=== PATIENT | female | born 1965 | race Caucasian/White ===

== ENCOUNTER 2018-03-30 13:58 | Emergency (ER) | payer SELFPAY ==
[~2018-03-30] VITALS: Ht 152.4 cm; Wt 43.6 kg
[2018-03-30 14:59] LABS: HEMATOCRIT 38.9 % (36.0-46.0); HEMOGLOBIN 12.9 G/DL (11.9-15.5); MCH 31.8 PG (29.0-34.0); MCHC 33.2 G/DL (30.0-36.0); MCV 95.8 FL (83-99); PLATELET COUNT 278 K/uL (156-360); RBC DIS.WIDTH-CV 12.8 % (11.8-14.6); RBC DIS.WIDTH-SD 45.4 % (39-53); RED BLOOD COUNT 4.06 M/uL (3.80-5.20); WHITE BLOOD COUNT 6.8 K/uL (4.1-10.2)
[2018-03-30 15:08] LABS: CHLORIDE 105 mEq/L (99-109); SODIUM 141 mEq/L (136-147)
[2018-03-30 15:09] LABS: GLUCOSE 97 mg/dL (70-99)
[2018-03-30 15:13] LABS: CREATININE 0.7 mg/dL (0.6-1.3)
[2018-03-30 15:14] LABS: GFR ESTIMATE (CALCULATED) > 59 mL/min/; UREA NITROGEN (BUN) 15 mg/dL (9-23)
[2018-03-30 15:19] LABS: TROP-I INTERPRETATION NEGATIVE; TROPONIN-I < 0.01 ng/mL (0.0-0.30)
[2018-03-30] MEDS ORDERED: PERCOCET 5/31 TABLET PO (16:09)
[2018-03-30 17:10] VITALS: BP 119/72
== END 2018-03-30 17:10 | disposition home or self-care (01) ==
LOC: EME 13:58
DX: R07.89 Other chest pain (principal); F41.9 Anxiety disorder, unspecified; F17.200 Nicotine dependence, unspecified, uncomplicated; Z88.8 Allergy status to other drugs, medicaments and biological substances
CPT/HCPCS: 71046; 80048; 84484; 85027; 93005; 99281; 99285

== ENCOUNTER 2018-05-28 16:12 | Emergency (ER) | payer SELFPAY ==
[~2018-05-28] VITALS: Ht 152.4 cm; Wt 46.8 kg
[~2018-05-28 16:12] MED LIST: PERCOCET 5/31 TABLET PO
[2018-05-28] MEDS ORDERED: FLEXERIL5 MG PO (16:47)
[2018-05-28] MEDS ORDERED: LEXAPRO20 MG PO (16:48)
[2018-05-28] MEDS ORDERED: BUSPAR10 MG PO (16:48)
[2018-05-28] MEDS ORDERED: GABAPENTIN300 MG PO (16:48)
[2018-05-28] MEDS ORDERED: TEGRETOL200 MG PO (16:49)
[2018-05-28] MEDS ORDERED: VENTOLIN HFA18 GM IH (19:25)
[2018-05-28] MEDS ORDERED: ZITHROMAX Z-PA250 MG PO (19:25)
[2018-05-28 19:49] VITALS: BP 115/79
[2018-05-29] MEDS ORDERED: INDOCIN50 MG PO (19:16)
== END 2018-05-28 20:08 | disposition home or self-care (01) ==
LOC: EME 16:12
DX: J18.9 Pneumonia, unspecified organism (principal); M26.603 Bilateral temporomandibular joint disorder, unspecified; F41.9 Anxiety disorder, unspecified; I45.10 Unspecified right bundle-branch block; F17.200 Nicotine dependence, unspecified, uncomplicated
CPT/HCPCS: 71046; 93005; 94640; 99281; 99284

== ENCOUNTER 2018-05-29 18:16 | Emergency (ER) | payer SELFPAY ==
[~2018-05-29] VITALS: Ht 152.4 cm; Wt 47.0 kg
[~2018-05-29 18:16] MED LIST changes: +BUSPAR10 MG PO; +FLEXERIL5 MG PO; +GABAPENTIN300 MG PO; +LEXAPRO20 MG PO; +TEGRETOL200 MG PO; +VENTOLIN HFA18 GM IH; +ZITHROMAX Z-PA250 MG PO
[2018-05-29] MEDS ORDERED: INDOCIN50 MG PO (19:16)
[2018-05-29 19:20] VITALS: BP 121/80
== END 2018-05-29 19:20 | disposition home or self-care (01) ==
LOC: EME 18:16
DX: M26.603 Bilateral temporomandibular joint disorder, unspecified (principal); F17.200 Nicotine dependence, unspecified, uncomplicated
CPT/HCPCS: 99281; 99283

== ENCOUNTER 2018-05-30 10:54 | Emergency (ER) | payer SELFPAY ==
[~2018-05-30] VITALS: Ht 152.4 cm; Wt 46.8 kg
[~2018-05-30 10:54] MED LIST changes: +INDOCIN50 MG PO
[2018-05-30 13:24] LABS: BASOPHIL (%) 0.4 % (0-1); EOSINOPHIL (%) 3.4 % (0-5); EOSINOPHIL COUNT 0.2 K/uL (0-0.3); HEMOGLOBIN 12.6 G/DL (11.9-15.5); IMMATURE GRANULOCYTE (%) 0.4 % (0.0-0.7); LYMPHOCYTE (%) 28.4 % (15-42); LYMPHOCYTE COUNT 1.3 K/uL (1.0-2.8); MCH 32.5 PG (29.0-34.0); MCHC 34.1 G/DL (30.0-36.0); MCV 95.4 FL (83-99); MONOCYTE (%) 8.1 % (3-12); MONOCYTE COUNT 0.4 K/uL (0-0.8); NEUTROPHIL (%) 59.3 % (45-76); NEUTROPHIL COUNT 2.8 K/uL (1.8-6.4); PLATELET COUNT 221 K/uL (156-360); RBC DIS.WIDTH-CV 13.5 % (11.8-14.6); RBC DIS.WIDTH-SD 47.3 % (39-53); RED BLOOD COUNT 3.88 M/uL (3.80-5.20); WHITE BLOOD COUNT 4.7 K/uL (4.1-10.2)
[2018-05-30 14:42] LABS: CHLORIDE 104 MEQ/L (99-109); CREATININE 0.7 MG/DL (0.6-1.3); GFR ESTIMATE (CALCULATED) > 59 mL/min/; GLUCOSE 80 mg/dL (70-99); POTASSIUM 4.1 MEQ/L (3.7-5.4); SODIUM 140 MEQ/L (136-147); UREA NITROGEN (BUN) 17 mg/dL (9-23)
[2018-05-30 16:57] VITALS: BP 104/63
[2018-05-31] MEDS ORDERED: ROBAXIN500 MG PO (14:51)
== END 2018-05-30 17:28 | disposition home or self-care (01) ==
LOC: EME 10:54
PROVIDERS: Emergency Medicine
DX: M26.629 Arthralgia of temporomandibular joint, unspecified side (principal); E04.1 Nontoxic single thyroid nodule; F17.200 Nicotine dependence, unspecified, uncomplicated; Z86.79 Personal history of other diseases of the circulatory system; Z88.8 Allergy status to other drugs, medicaments and biological substances
CPT/HCPCS: 70491; 80048; 85025; 99281; 99284; J2060; J7120

== ENCOUNTER 2018-05-31 10:18 | Emergency (ER) | payer SELFPAY ==
[~2018-05-31] VITALS: Ht 152.4 cm; Wt 46.3 kg
[2018-05-31 12:42] VITALS: BP 125/78
[2018-05-31] MEDS ORDERED: ROBAXIN500 MG PO (14:51)
== END 2018-05-31 12:43 | disposition home or self-care (01) ==
LOC: EME 10:18
DX: F41.9 Anxiety disorder, unspecified (principal); Z73.3 Stress, not elsewhere classified; F17.200 Nicotine dependence, unspecified, uncomplicated
CPT/HCPCS: 90839; 99281; 99283

== ENCOUNTER 2018-05-31 14:28 | Emergency (ER) | payer SELFPAY ==
[~2018-05-31] VITALS: Ht 157.5 cm; Wt 46.3 kg
[2018-05-31] MEDS ORDERED: ROBAXIN500 MG PO (14:51)
[2018-05-31 15:40] VITALS: BP 111/70
== END 2018-05-31 15:40 | disposition home or self-care (01) ==
LOC: EME 14:28
DX: F41.0 Panic disorder [episodic paroxysmal anxiety] (principal); R06.02 Shortness of breath; F17.200 Nicotine dependence, unspecified, uncomplicated
CPT/HCPCS: 99281; 99284

== ENCOUNTER 2018-06-01 08:58 | Emergency (ER) | payer SELFPAY ==
[~2018-06-01] VITALS: Ht 165.1 cm; Wt 50.0 kg
[~2018-06-01 08:58] MED LIST changes: +ROBAXIN500 MG PO
[2018-06-01 11:20] VITALS: BP 126/72
[2018-06-02] MEDS ORDERED: LIBRIUM25 MG PO (19:38)
== END 2018-06-01 11:28 | disposition home or self-care (01) ==
LOC: EME 08:58
DX: F41.1 Generalized anxiety disorder (principal); R91.8 Other nonspecific abnormal finding of lung field; F17.200 Nicotine dependence, unspecified, uncomplicated; Z86.79 Personal history of other diseases of the circulatory system; Z88.8 Allergy status to other drugs, medicaments and biological substances
CPT/HCPCS: 71046; 80053; 84484; 85027; 90839; 99281; 99284

== ENCOUNTER 2018-06-01 11:27 | Emergency (ER) | payer SELFPAY ==
[~2018-06-01] VITALS: Ht 152.4 cm; Wt 46.2 kg
[2018-06-01 11:42] VITALS: BP 113/83
[2018-06-02] MEDS ORDERED: LIBRIUM25 MG PO (19:38)
== END 2018-06-01 13:19 | disposition left against medical advice (07) ==
LOC: EME 11:27
DX: R06.00 Dyspnea, unspecified (principal); Z53.21 Procedure and treatment not carried out due to patient leaving prior to being seen by health care provider

== ENCOUNTER 2018-06-02 19:11 | Emergency (ER) | payer SELFPAY ==
[~2018-06-02] VITALS: Ht 152.4 cm; Wt 47.2 kg
[2018-06-02] MEDS ORDERED: LIBRIUM25 MG PO (19:38)
[2018-06-02 19:59] VITALS: BP 128/76
== END 2018-06-02 19:59 | disposition home or self-care (01) ==
LOC: EME 19:11 → EXP 19:11
DX: F41.9 Anxiety disorder, unspecified (principal); F32.9 Major depressive disorder, single episode, unspecified; F17.200 Nicotine dependence, unspecified, uncomplicated; Z88.8 Allergy status to other drugs, medicaments and biological substances
CPT/HCPCS: 99281; 99284

== ENCOUNTER 2018-06-17 22:45 | Emergency (ER) | payer SELFPAY ==
[~2018-06-17] VITALS: Ht 152.4 cm; Wt 50.0 kg
[~2018-06-17 22:45] MED LIST changes: +LIBRIUM25 MG PO
[2018-06-18 00:17] VITALS: BP 117/75
== END 2018-06-18 00:18 | disposition home or self-care (01) ==
LOC: EME 22:45
DX: F41.9 Anxiety disorder, unspecified (principal); F41.0 Panic disorder [episodic paroxysmal anxiety]; Z76.0 Encounter for issue of repeat prescription; F17.200 Nicotine dependence, unspecified, uncomplicated
CPT/HCPCS: 99281; 99284; Q0177

== ENCOUNTER 2018-06-18 09:26 | Emergency (ER) | payer SELFPAY ==
[~2018-06-18] VITALS: Ht 152.4 cm; Wt 45.0 kg
[2018-06-18 11:41] LABS: APPEARANCE SL.HAZY ((CLEAR)); BILIRUBIN NEGATIVE; BLOOD NEGATIVE; COLOR YELLOW ((YELLOW)); GLUCOSE (STRIP) NEGATIVE; KETONES NEGATIVE; LEUKOCYTES MODERATE; NITRITE NEGATIVE; PROTEIN (STRIP) NEGATIVE; SPECIFIC GRAVITY 1.008 (1.000-1.030); UROBILINOGEN 0.2 MG/DL (0.2-1.0)
[2018-06-18 11:47] LABS: BACTERIA 1+ /HPF; EPITHELIAL CELLS 3+ /HPF; MUCUS NONE SEEN /LPF; RED BLOOD CELLS 0-5 /HPF (0-5); WHITE BLOOD CELLS 0-5 /HPF (0-5)
[2018-06-18 11:51] LABS: BASOPHIL (%) 0.5 % (0-1); EOSINOPHIL (%) 0.8 % (0-5); EOSINOPHIL COUNT 0.1 K/uL (0-0.3); HEMATOCRIT 43.6 % (36.0-46.0); HEMOGLOBIN 14.8 G/DL (11.9-15.5); IMMATURE GRANULOCYTE (%) 0.3 % (0.0-0.7); LYMPHOCYTE (%) 16.6 % (15-42); MCH 32.1 PG (29.0-34.0); MCHC 33.9 G/DL (30.0-36.0); MCV 94.6 FL (83-99); MONOCYTE (%) 4.5 % (3-12); MONOCYTE COUNT 0.3 K/uL (0-0.8); NEUTROPHIL (%) 77.3 % (45-76); NEUTROPHIL COUNT 4.7 K/uL (1.8-6.4); PLATELET COUNT 250 K/uL (156-360); RBC DIS.WIDTH-CV 13.4 % (11.8-14.6); RBC DIS.WIDTH-SD 46.8 % (39-53); RED BLOOD COUNT 4.61 M/uL (3.80-5.20)
[2018-06-18 11:53] LABS: CHLORIDE 104 mEq/L (99-109); POTASSIUM 4.7 mEq/L (3.7-5.4); SODIUM 142 mEq/L (136-147)
[2018-06-18 11:53] LABS: AMPHETAMINE NEGATIVE (500 ng/mL); BARBITURATES NEGATIVE (200 ng/mL); BENZODIAZEPINES PRESUMPTIVE POSITIVE (150 ng/mL); BUPRENORPHINE NEGATIVE (10 ng/mL); COCAINE NEGATIVE (150 ng/mL); METHADONE NEGATIVE (200 ng/mL); METHAMPHETAMINE NEGATIVE (500 ng/mL); OPIATES (MORPHINE) NEGATIVE (100 ng/mL); OXYCODONE NEGATIVE (100 ng/mL); PHENCYCLIDINE NEGATIVE (25 ng/mL); PROPOXYPHENE NEGATIVE (300 ng/mL); THC CANNABINOIDS NEGATIVE (50 ng/mL); TRICYCLIC ANTIDEPRESSANTS NEGATIVE (300 ng/mL)
[2018-06-18 11:55] LABS: GLUCOSE 125 mg/dL (70-99)
[2018-06-18 11:58] LABS: CREATININE 0.8 mg/dL (0.6-1.3); GFR ESTIMATE (CALCULATED) > 59 mL/min/; SERUM ETHYL ALCOHOL < 10 mg/dL
[2018-06-18 11:59] LABS: UREA NITROGEN (BUN) 12 mg/dL (9-23)
[2018-06-18 12:36] LABS: BENZODIAZEPINES, URINE SCREEN POSITIVE (200 ng/mL)
[2018-06-18 12:45] VITALS: BP 125/83
== END 2018-06-18 12:46 | disposition home or self-care (01) ==
LOC: EME 09:26
PROVIDERS: Emergency Medicine
DX: F41.1 Generalized anxiety disorder (principal); F41.0 Panic disorder [episodic paroxysmal anxiety]; F32.9 Major depressive disorder, single episode, unspecified; F17.200 Nicotine dependence, unspecified, uncomplicated
CPT/HCPCS: 80048; 81003; 84999; 85025; 90839; 99281; 99284; G0480

== ENCOUNTER 2018-06-25 09:27 | Emergency (ER) | payer SELFPAY ==
[~2018-06-25] VITALS: Ht 152.4 cm; Wt 46.1 kg
[2018-06-25 10:40] LABS: HEMATOCRIT 39.8 % (36.0-46.0); HEMOGLOBIN 13.9 G/DL (11.9-15.5); MCHC 34.9 G/DL (30.0-36.0); MCV 91.7 FL (83-99); PLATELET COUNT 248 K/uL (156-360); RBC DIS.WIDTH-CV 12.9 % (11.8-14.6); RBC DIS.WIDTH-SD 43.6 % (39-53); RED BLOOD COUNT 4.34 M/uL (3.80-5.20); WHITE BLOOD COUNT 5.2 K/uL (4.1-10.2)
[2018-06-25 10:52] LABS: CHLORIDE 103 mEq/L (99-109); SODIUM 141 mEq/L (136-147)
[2018-06-25 10:53] LABS: GLUCOSE 130 mg/dL (70-99); POTASSIUM 3.7 mEq/L (3.7-5.4)
[2018-06-25 10:57] LABS: CREATININE 0.8 mg/dL (0.6-1.3); GFR ESTIMATE (CALCULATED) > 59 mL/min/
[2018-06-25 10:58] LABS: UREA NITROGEN (BUN) 8 mg/dL (9-23)
[2018-06-25 11:20] LABS: APPEARANCE SL.HAZY ((CLEAR)); BILIRUBIN NEGATIVE; BLOOD SMALL; COLOR YELLOW ((YELLOW)); GLUCOSE (STRIP) NEGATIVE; KETONES NEGATIVE; LEUKOCYTES MODERATE; NITRITE POSITIVE; PROTEIN (STRIP) NEGATIVE; SPECIFIC GRAVITY 1.013 (1.000-1.030); UROBILINOGEN 0.2 MG/DL (0.2-1.0)
[2018-06-25 11:28] LABS: BACTERIA 1+ /HPF; EPITHELIAL CELLS 1+ /HPF; MUCUS TRACE /LPF; UCUL ADDED? YES; WHITE BLOOD CELLS 30-40 /HPF (0-5)
[2018-06-25 11:30] VITALS: BP 147/83
[2018-06-25 11:57] LABS: AMPHETAMINE NEGATIVE (500 ng/mL); BARBITURATES NEGATIVE (200 ng/mL); BENZODIAZEPINES PRESUMPTIVE POSITIVE (150 ng/mL); BUPRENORPHINE NEGATIVE (10 ng/mL); COCAINE NEGATIVE (150 ng/mL); METHADONE NEGATIVE (200 ng/mL); METHAMPHETAMINE NEGATIVE (500 ng/mL); OPIATES (MORPHINE) NEGATIVE (100 ng/mL); OXYCODONE NEGATIVE (100 ng/mL); PHENCYCLIDINE NEGATIVE (25 ng/mL); PROPOXYPHENE NEGATIVE (300 ng/mL); THC CANNABINOIDS NEGATIVE (50 ng/mL); TRICYCLIC ANTIDEPRESSANTS NEGATIVE (300 ng/mL)
[2018-06-25 13:09] LABS: BENZODIAZEPINES, URINE SCREEN POSITIVE (200 ng/mL)
[2018-06-25] MEDS ORDERED: MACROBID100 MG PO (17:04)
[2018-06-25] MEDS ORDERED: LIDODERM 5% P1 PATCH TD (17:04)
[2018-06-26] MEDS ORDERED: SEROQUEL50 MG PO (12:37)
== END 2018-06-25 11:35 | disposition home or self-care (01) ==
LOC: EME 09:27
PROVIDERS: Emergency Medicine
DX: F41.9 Anxiety disorder, unspecified (principal); F13.10 Sedative, hypnotic or anxiolytic abuse, uncomplicated; F32.9 Major depressive disorder, single episode, unspecified; F17.200 Nicotine dependence, unspecified, uncomplicated; Z88.8 Allergy status to other drugs, medicaments and biological substances
CPT/HCPCS: 80048; 81003; 84999; 85027; 87077; 87086; 87186; 90839; 99281; 99283

== ENCOUNTER 2018-06-25 14:40 | Emergency (ER) | payer SELFPAY ==
[~2018-06-25] VITALS: Ht 152.4 cm; Wt 46.4 kg
[2018-06-25] MEDS ORDERED: LIDODERM 5% P1 PATCH TD (17:04)
[2018-06-25] MEDS ORDERED: MACROBID100 MG PO (17:04)
[2018-06-25 17:25] VITALS: BP 150/97
[2018-06-26] MEDS ORDERED: SEROQUEL50 MG PO (12:37)
== END 2018-06-25 17:32 | disposition home or self-care (01) ==
LOC: EME 14:40
DX: F41.0 Panic disorder [episodic paroxysmal anxiety] (principal); F41.1 Generalized anxiety disorder; N39.0 Urinary tract infection, site not specified; M54.2 Cervicalgia; R68.84 Jaw pain; R20.2 Paresthesia of skin; F17.200 Nicotine dependence, unspecified, uncomplicated
CPT/HCPCS: 99281; 99284

== ENCOUNTER 2018-06-26 09:49 | Emergency (ER) | payer SELFPAY ==
[~2018-06-26] VITALS: Ht 152.4 cm; Wt 47.2 kg
[~2018-06-26 09:49] MED LIST changes: +LIDODERM 5% P1 PATCH TD; +MACROBID100 MG PO
[2018-06-26] MEDS ORDERED: SEROQUEL50 MG PO (12:37)
[2018-06-26 12:54] VITALS: BP 145/89
[2018-06-27] MEDS ORDERED: ZOFRAN ODT8 MG PO (11:29)
[2018-06-27] MEDS ORDERED: AMOXICILLIN400 MG PO (11:29)
== END 2018-06-26 13:01 | disposition home or self-care (01) ==
LOC: EME 09:49
DX: F41.9 Anxiety disorder, unspecified (principal); Z76.0 Encounter for issue of repeat prescription; F32.9 Major depressive disorder, single episode, unspecified; F17.200 Nicotine dependence, unspecified, uncomplicated; Z88.8 Allergy status to other drugs, medicaments and biological substances
CPT/HCPCS: 90832; 99281; 99284

== ENCOUNTER 2018-06-27 08:14 | Emergency (ER) | payer SELFPAY ==
[~2018-06-27] VITALS: Ht 152.4 cm; Wt 44.4 kg
[~2018-06-27 08:14] MED LIST changes: +SEROQUEL50 MG PO
[2018-06-27 08:46] LABS: HEMATOCRIT 41.1 % (36.0-46.0); HEMOGLOBIN 14.2 G/DL (11.9-15.5); MCH 32.2 PG (29.0-34.0); MCHC 34.5 G/DL (30.0-36.0); MCV 93.2 FL (83-99); PLATELET COUNT 247 K/uL (156-360); RBC DIS.WIDTH-CV 13.2 % (11.8-14.6); RBC DIS.WIDTH-SD 45.5 % (39-53); RED BLOOD COUNT 4.41 M/uL (3.80-5.20); WHITE BLOOD COUNT 7.5 K/uL (4.1-10.2)
[2018-06-27 08:54] LABS: ALBUMIN 4.6 g/dL (3.2-4.8); CHLORIDE 102 mEq/L (99-109); SODIUM 142 mEq/L (136-147)
[2018-06-27 08:57] LABS: GLUCOSE 117 mg/dL (70-99); TOTAL PROTEIN 7.9 g/dL (6.4-8.3)
[2018-06-27 08:59] LABS: TOTAL BILIRUBIN 0.6 mg/dL (0.0-1.0)
[2018-06-27 09:00] LABS: ALKALINE PHOSPHATASE 70 IU/L (3-129); CREATININE 0.8 mg/dL (0.6-1.3); GFR ESTIMATE (CALCULATED) > 59 mL/min/
[2018-06-27 09:01] LABS: UREA NITROGEN (BUN) 13 mg/dL (9-23)
[2018-06-27 09:02] LABS: AST (GOT) 21 IU/L (2-34)
[2018-06-27 09:03] LABS: ALT (GPT) 23 IU/L (3-49)
[2018-06-27 09:32] LABS: APPEARANCE CLOUDY ((CLEAR)); BILIRUBIN NEGATIVE; BLOOD MODERATE; COLOR YELLOW ((YELLOW)); GLUCOSE (STRIP) NEGATIVE; KETONES 80; LEUKOCYTES TRACE; NITRITE NEGATIVE; PROTEIN (STRIP) 30; SPECIFIC GRAVITY 1.023 (1.000-1.030); UROBILINOGEN 0.2 MG/DL (0.2-1.0)
[2018-06-27 09:53] LABS: EPITHELIAL CELLS 4+ /HPF
[2018-06-27 09:54] LABS: MUCUS NONE SEEN /LPF
[2018-06-27 09:55] LABS: BACTERIA 4+ /HPF
[2018-06-27] MEDS ORDERED: AMOXICILLIN400 MG PO (11:29)
[2018-06-27] MEDS ORDERED: ZOFRAN ODT8 MG PO (11:29)
[2018-06-27 12:20] VITALS: BP 126/77
== END 2018-06-27 12:20 | disposition home or self-care (01) ==
LOC: EME 08:14
PROVIDERS: Physician Assistant
DX: R10.30 Lower abdominal pain, unspecified (principal); R11.0 Nausea; Z87.440 Personal history of urinary (tract) infections; F32.9 Major depressive disorder, single episode, unspecified; F17.200 Nicotine dependence, unspecified, uncomplicated; Z88.8 Allergy status to other drugs, medicaments and biological substances
CPT/HCPCS: 80053; 81003; 85027; 99281; 99285

== ENCOUNTER 2018-06-28 08:57 | Emergency (ER) | payer SELFPAY ==
[~2018-06-28] VITALS: Ht 152.4 cm; Wt 45.5 kg
[~2018-06-28 08:57] MED LIST changes: +AMOXICILLIN400 MG PO; +ZOFRAN ODT8 MG PO
[2018-06-28 10:02] LABS: AMPHETAMINE NEGATIVE (500 ng/mL); BARBITURATES NEGATIVE (200 ng/mL); BENZODIAZEPINES PRESUMPTIVE POSITIVE (150 ng/mL); BUPRENORPHINE NEGATIVE (10 ng/mL); COCAINE NEGATIVE (150 ng/mL); METHADONE NEGATIVE (200 ng/mL); METHAMPHETAMINE NEGATIVE (500 ng/mL); OPIATES (MORPHINE) NEGATIVE (100 ng/mL); OXYCODONE NEGATIVE (100 ng/mL); PHENCYCLIDINE NEGATIVE (25 ng/mL); PROPOXYPHENE NEGATIVE (300 ng/mL); THC CANNABINOIDS NEGATIVE (50 ng/mL); TRICYCLIC ANTIDEPRESSANTS NEGATIVE (300 ng/mL)
[2018-06-28 10:08] LABS: BASOPHIL (%) 0.4 % (0-1); EOSINOPHIL (%) 2.1 % (0-5); EOSINOPHIL COUNT 0.1 K/uL (0-0.3); HEMOGLOBIN 14.5 G/DL (11.9-15.5); IMMATURE GRANULOCYTE (%) 0.3 % (0.0-0.7); LYMPHOCYTE (%) 15.2 % (15-42); MCH 32.2 PG (29.0-34.0); MCHC 34.5 G/DL (30.0-36.0); MCV 93.3 FL (83-99); MONOCYTE (%) 6.5 % (3-12); MONOCYTE COUNT 0.4 K/uL (0-0.8); NEUTROPHIL (%) 75.5 % (45-76); NEUTROPHIL COUNT 5.1 K/uL (1.8-6.4); PLATELET COUNT 272 K/uL (156-360); RBC DIS.WIDTH-CV 13.2 % (11.8-14.6); RBC DIS.WIDTH-SD 45.2 % (39-53); WHITE BLOOD COUNT 6.8 K/uL (4.1-10.2)
[2018-06-28 10:17] LABS: CHLORIDE 103 mEq/L (99-109); POTASSIUM 3.5 mEq/L (3.7-5.4); SODIUM 142 mEq/L (136-147)
[2018-06-28 10:19] LABS: GLUCOSE 122 mg/dL (70-99)
[2018-06-28 10:22] LABS: CREATININE 0.8 mg/dL (0.6-1.3); GFR ESTIMATE (CALCULATED) > 59 mL/min/; SERUM ETHYL ALCOHOL < 10 mg/dL
[2018-06-28 10:23] LABS: UREA NITROGEN (BUN) 18 mg/dL (9-23)
[2018-06-28 10:49] LABS: BENZODIAZEPINES, URINE SCREEN POSITIVE (200 ng/mL)
[2018-06-28 10:53] LABS: APPEARANCE SL.HAZY ((CLEAR)); BILIRUBIN NEGATIVE; BLOOD MODERATE; COLOR YELLOW ((YELLOW)); GLUCOSE (STRIP) NEGATIVE; KETONES 80; LEUKOCYTES TRACE; NITRITE NEGATIVE; PROTEIN (STRIP) 30; SPECIFIC GRAVITY 1.025 (1.000-1.030); UROBILINOGEN 0.2 MG/DL (0.2-1.0)
[2018-06-28 11:02] LABS: BACTERIA 1+ /HPF; EPITHELIAL CELLS 1+ /HPF; MUCUS 3+ /LPF
[2018-06-28 12:31] VITALS: BP 110/80
== END 2018-06-28 12:32 | disposition home or self-care (01) ==
LOC: EME 08:57
PROVIDERS: Emergency Medicine
DX: F41.1 Generalized anxiety disorder (principal); F41.0 Panic disorder [episodic paroxysmal anxiety]; F13.20 Sedative, hypnotic or anxiolytic dependence, uncomplicated; F32.9 Major depressive disorder, single episode, unspecified; F17.200 Nicotine dependence, unspecified, uncomplicated; Z88.8 Allergy status to other drugs, medicaments and biological substances
CPT/HCPCS: 80048; 81003; 84999; 85025; 90839; 99281; 99284; G0480

== ENCOUNTER 2018-06-29 08:56 | Emergency (ER) | payer SELFPAY ==
[~2018-06-29] VITALS: Ht 160 cm; Wt 42.7 kg
[2018-06-29 13:36] VITALS: BP 118/77
== END 2018-06-29 13:37 | disposition home or self-care (01) ==
LOC: EME 08:56
DX: F41.9 Anxiety disorder, unspecified (principal); F32.9 Major depressive disorder, single episode, unspecified; F17.200 Nicotine dependence, unspecified, uncomplicated; Z76.5 Malingerer [conscious simulation]; Z88.8 Allergy status to other drugs, medicaments and biological substances
CPT/HCPCS: 87081; 99281; 99284

== ENCOUNTER 2018-07-18 11:03 | Emergency (ER) | payer SELFPAY ==
[~2018-07-18] VITALS: Ht 152.4 cm; Wt 47.7 kg
[2018-07-18 13:13] VITALS: BP 111/75
== END 2018-07-18 13:20 | disposition home or self-care (01) ==
LOC: EME 11:03
DX: F41.1 Generalized anxiety disorder (principal); F41.0 Panic disorder [episodic paroxysmal anxiety]; F13.20 Sedative, hypnotic or anxiolytic dependence, uncomplicated; F32.9 Major depressive disorder, single episode, unspecified; Z88.8 Allergy status to other drugs, medicaments and biological substances; F17.200 Nicotine dependence, unspecified, uncomplicated
CPT/HCPCS: 90839; 99281; 99284

== ENCOUNTER 2018-07-18 19:06 | Emergency (ER) | payer SELFPAY ==
[~2018-07-18] VITALS: Ht 152.4 cm; Wt 47.0 kg
[2018-07-18 22:55] LABS: HEMATOCRIT 38.5 % (36.0-46.0); MCHC 33.8 G/DL (30.0-36.0); MCV 94.8 FL (83-99); PLATELET COUNT 264 K/uL (156-360); RBC DIS.WIDTH-CV 13.2 % (11.8-14.6); RED BLOOD COUNT 4.06 M/uL (3.80-5.20); WHITE BLOOD COUNT 4.8 K/uL (4.1-10.2)
[2018-07-18 23:13] LABS: CHLORIDE 103 mEq/L (99-109); POTASSIUM 3.3 mEq/L (3.7-5.4); SODIUM 141 mEq/L (136-147)
[2018-07-18 23:14] LABS: GLUCOSE 83 mg/dL (70-99)
[2018-07-18 23:19] LABS: CREATININE 0.8 mg/dL (0.6-1.3); GFR ESTIMATE (CALCULATED) > 59 mL/min/; UREA NITROGEN (BUN) 11 mg/dL (9-23)
[2018-07-18 23:28] LABS: TROP-I INTERPRETATION NEGATIVE; TROPONIN-I < 0.01 ng/mL (0.0-0.30)
[2018-07-19 00:52] VITALS: BP 114/88
[2018-07-20] MEDS ORDERED: PEPCID20 MG PO (11:36)
[2018-07-20] MEDS ORDERED: CITALOPRAM HBR20 MG PO (11:36)
[2018-07-20] MEDS ORDERED: BUSPAR5 MG PO (11:36)
[2018-07-20] MEDS ORDERED: CIPRO500 MG PO ×2 (11:37→11:39)
== END 2018-07-19 01:12 | disposition home or self-care (01) ==
LOC: EME 19:06
PROVIDERS: Physician Assistant
DX: M62.838 Other muscle spasm (principal); F41.0 Panic disorder [episodic paroxysmal anxiety]; E87.6 Hypokalemia; F32.9 Major depressive disorder, single episode, unspecified; F17.200 Nicotine dependence, unspecified, uncomplicated; Z88.8 Allergy status to other drugs, medicaments and biological substances
CPT/HCPCS: 71046; 80048; 84484; 85027; 93005; 99281; 99283; J2060

== ENCOUNTER 2018-07-19 11:18 | Emergency (ER) | payer SELFPAY ==
[~2018-07-19] VITALS: Ht 152.4 cm; Wt 45.4 kg
[2018-07-19 12:50] VITALS: BP 110/68
[2018-07-20] MEDS ORDERED: BUSPAR5 MG PO (11:36)
[2018-07-20] MEDS ORDERED: CITALOPRAM HBR20 MG PO (11:36)
[2018-07-20] MEDS ORDERED: PEPCID20 MG PO (11:36)
[2018-07-20] MEDS ORDERED: CIPRO500 MG PO ×2 (11:37→11:39)
== END 2018-07-19 12:48 | disposition home or self-care (01) ==
LOC: EME 11:18
DX: F41.9 Anxiety disorder, unspecified (principal); F32.9 Major depressive disorder, single episode, unspecified; F17.200 Nicotine dependence, unspecified, uncomplicated; Z88.8 Allergy status to other drugs, medicaments and biological substances
CPT/HCPCS: 99281; 99284; J2765

== ENCOUNTER 2018-07-19 16:33 | Emergency (ER) | payer SELFPAY ==
[~2018-07-19] VITALS: Ht 152.4 cm; Wt 45.4 kg
[2018-07-19 18:55] VITALS: BP 120/68
[2018-07-20] MEDS ORDERED: PEPCID20 MG PO (11:36)
[2018-07-20] MEDS ORDERED: BUSPAR5 MG PO (11:36)
[2018-07-20] MEDS ORDERED: CITALOPRAM HBR20 MG PO (11:36)
[2018-07-20] MEDS ORDERED: CIPRO500 MG PO ×2 (11:37→11:39)
== END 2018-07-19 18:55 | disposition home or self-care (01) ==
LOC: EME 16:33
DX: F41.9 Anxiety disorder, unspecified (principal); G43.909 Migraine, unspecified, not intractable, without status migrainosus; F32.9 Major depressive disorder, single episode, unspecified; F17.200 Nicotine dependence, unspecified, uncomplicated; Z88.8 Allergy status to other drugs, medicaments and biological substances
CPT/HCPCS: 99281; 99284; J1885

== ENCOUNTER 2018-07-20 08:59 | Emergency (ER) | payer SELFPAY ==
[~2018-07-20] VITALS: Ht 152.4 cm; Wt 46.0 kg
[2018-07-20 09:57] LABS: BASOPHIL (%) 0.6 % (0-1); EOSINOPHIL (%) 2.4 % (0-5); EOSINOPHIL COUNT 0.1 K/uL (0-0.3); HEMATOCRIT 40.2 % (36.0-46.0); HEMOGLOBIN 13.6 G/DL (11.9-15.5); IMMATURE GRANULOCYTE (%) 0.2 % (0.0-0.7); LYMPHOCYTE (%) 16.4 % (15-42); LYMPHOCYTE COUNT 0.9 K/uL (1.0-2.8); MCH 31.8 PG (29.0-34.0); MCHC 33.8 G/DL (30.0-36.0); MCV 93.9 FL (83-99); MONOCYTE (%) 6.8 % (3-12); MONOCYTE COUNT 0.4 K/uL (0-0.8); NEUTROPHIL (%) 73.6 % (45-76); PLATELET COUNT 258 K/uL (156-360); RBC DIS.WIDTH-CV 13.2 % (11.8-14.6); RED BLOOD COUNT 4.28 M/uL (3.80-5.20); WHITE BLOOD COUNT 5.4 K/uL (4.1-10.2)
[2018-07-20 10:06] LABS: CHLORIDE 105 mEq/L (99-109); SODIUM 141 mEq/L (136-147)
[2018-07-20 10:07] LABS: POTASSIUM 4.1 mEq/L (3.7-5.4)
[2018-07-20 10:08] LABS: GLUCOSE 106 mg/dL (70-99)
[2018-07-20 10:11] LABS: SERUM ETHYL ALCOHOL < 10 mg/dL
[2018-07-20 10:12] LABS: UREA NITROGEN (BUN) 15 mg/dL (9-23)
[2018-07-20 10:32] LABS: APPEARANCE CLOUDY ((CLEAR)); BILIRUBIN NEGATIVE; BLOOD SMALL; COLOR AMBER ((YELLOW)); GLUCOSE (STRIP) NEGATIVE; KETONES NEGATIVE; LEUKOCYTES MODERATE; NITRITE POSITIVE; PROTEIN (STRIP) 30; SPECIFIC GRAVITY 1.018 (1.000-1.030)
[2018-07-20 10:34] LABS: CREATININE 0.8 mg/dL (0.6-1.3); GFR ESTIMATE (CALCULATED) > 59 mL/min/
[2018-07-20 10:41] LABS: AMPHETAMINE NEGATIVE (500 ng/mL); BENZODIAZEPINES PRESUMPTIVE POSITIVE (150 ng/mL); COCAINE NEGATIVE (150 ng/mL); METHAMPHETAMINE NEGATIVE (500 ng/mL); OPIATES (MORPHINE) NEGATIVE (100 ng/mL); PHENCYCLIDINE NEGATIVE (25 ng/mL); THC CANNABINOIDS NEGATIVE (50 ng/mL)
[2018-07-20 10:42] LABS: BARBITURATES NEGATIVE (200 ng/mL); BUPRENORPHINE NEGATIVE (10 ng/mL); METHADONE NEGATIVE (200 ng/mL); OXYCODONE NEGATIVE (100 ng/mL); PROPOXYPHENE NEGATIVE (300 ng/mL); TRICYCLIC ANTIDEPRESSANTS PRESUMPTIVE POSITIVE (300 ng/mL)
[2018-07-20 10:54] LABS: EPITHELIAL CELLS 2+ /HPF; WHITE BLOOD CELLS 20-30 /HPF (0-5)
[2018-07-20 10:55] LABS: BACTERIA 3+ /HPF; MUCUS RARE /LPF
[2018-07-20 11:18] LABS: BENZODIAZEPINES, URINE SCREEN POSITIVE (200 ng/mL)
[2018-07-20] MEDS ORDERED: BUSPAR5 MG PO (11:36)
[2018-07-20] MEDS ORDERED: PEPCID20 MG PO (11:36)
[2018-07-20] MEDS ORDERED: CITALOPRAM HBR20 MG PO (11:36)
[2018-07-20] MEDS ORDERED: CIPRO500 MG PO ×2 (11:37→11:39)
[2018-07-20 12:15] VITALS: BP 106/69
== END 2018-07-20 12:15 | disposition home or self-care (01) ==
LOC: EME 08:59
PROVIDERS: Emergency Medicine
DX: F41.1 Generalized anxiety disorder (principal); N39.0 Urinary tract infection, site not specified; R68.84 Jaw pain; H53.8 Other visual disturbances; F17.200 Nicotine dependence, unspecified, uncomplicated
CPT/HCPCS: 80048; 81003; 84999; 85025; 90839; 99281; 99284; G0480

== ENCOUNTER 2018-07-20 13:28 | Emergency (ER) | payer SELFPAY ==
[~2018-07-20] VITALS: Ht 152.4 cm; Wt 45.6 kg
[~2018-07-20 13:28] MED LIST changes: +BUSPAR5 MG PO; +CIPRO500 MG PO; +CITALOPRAM HBR20 MG PO; +PEPCID20 MG PO
[2018-07-20 15:54] VITALS: BP 106/78
== END 2018-07-20 15:55 | disposition home or self-care (01) ==
LOC: AMB 13:28 → EME 13:28 → AMB 15:55
DX: M62.838 Other muscle spasm (principal); F41.9 Anxiety disorder, unspecified; N39.0 Urinary tract infection, site not specified; F17.200 Nicotine dependence, unspecified, uncomplicated
CPT/HCPCS: 90832

== ENCOUNTER 2018-07-20 17:42 | Emergency (ER) | payer SELFPAY ==
[~2018-07-20] VITALS: Ht 152.4 cm; Wt 45.0 kg
[2018-07-20 20:30] VITALS: BP 118/72
== END 2018-07-20 20:32 | disposition home or self-care (01) ==
LOC: EME 17:42
DX: F41.9 Anxiety disorder, unspecified (principal); F13.10 Sedative, hypnotic or anxiolytic abuse, uncomplicated; I45.10 Unspecified right bundle-branch block; F32.9 Major depressive disorder, single episode, unspecified; F17.200 Nicotine dependence, unspecified, uncomplicated; Z88.8 Allergy status to other drugs, medicaments and biological substances
CPT/HCPCS: 90839; 93005; 99281; 99284

== ENCOUNTER 2018-07-23 16:10 | Emergency (ER) | payer SELFPAY ==
[~2018-07-23] VITALS: Ht 165.1 cm; Wt 47.3 kg
[2018-07-23] MEDS ORDERED: LIBRIUM25 MG PO (17:42)
[2018-07-23 18:22] VITALS: BP 110/79
== END 2018-07-23 18:25 | disposition home or self-care (01) ==
LOC: EME 16:10
DX: F13.239 Sedative, hypnotic or anxiolytic dependence with withdrawal, unspecified (principal); F41.9 Anxiety disorder, unspecified; R25.1 Tremor, unspecified; F32.9 Major depressive disorder, single episode, unspecified; F17.200 Nicotine dependence, unspecified, uncomplicated
CPT/HCPCS: 99281; 99284